=== PATIENT | female | born 1985 | race Two or more races ===

== ENCOUNTER 2020-07-29 08:47 | Emergency (ER) | payer OTHER ==
[~2020-07-29] VITALS: Ht 68.6 cm; Wt 99.8 kg
[2020-07-29] MEDS ORDERED: TRADJENTA5 MG PO (09:21)
[2020-07-29] MEDS ORDERED: CARDURA1 MG PO (09:21)
[2020-07-29] MEDS ORDERED: HYDROCHLOROTH12.5 MG PO (09:22)
[2020-07-29] MEDS ORDERED: COZAAR100 MG PO (09:22)
[2020-07-29] MEDS ORDERED: FORTAMET1000 MG PO (09:22)
== END 2020-07-29 13:02 | disposition home or self-care (01) ==
LOC: ER 08:47
DX: B34.9 Viral infection, unspecified (principal); N91.0 Primary amenorrhea; Z33.1 Pregnant state, incidental; Z03.818 Encounter for observation for suspected exposure to other biological agents ruled out

== ENCOUNTER 2020-08-02 13:22 | Emergency (ER) | payer OTHER ==
[~2020-08-02] VITALS: Ht 160 cm; Wt 99.8 kg
[~2020-08-02 13:22] MED LIST: CARDURA1 MG PO; COZAAR100 MG PO; FORTAMET1000 MG PO; HYDROCHLOROTH12.5 MG PO; TRADJENTA5 MG PO
[2020-08-02] MEDS ORDERED: ACETAMINOPHEN650 M2 PO (19:03)
== END 2020-08-02 19:33 | disposition home or self-care (01) ==
LOC: ER 13:22
DX: O20.0 Threatened abortion (principal)

== ENCOUNTER → 2020-08-27 | Outpatient (CLI) | payer OTHER ==
[~2020-08-27] MED LIST changes: +ACETAMINOPHEN650 M2 PO
== END | disposition home or self-care (01) ==
LOC: PRENATAL 09:13
PROVIDERS: ATTEND Obstetrics & Gynecology Maternal & Fetal Medicine
DX: O10.011 Pre-existing essential hypertension complicating pregnancy, first trimester (principal); O24.311 Unspecified pre-existing diabetes mellitus in pregnancy, first trimester; O36.80X1 Pregnancy with inconclusive fetal viability, fetus 1; Z36.89 Encounter for other specified antenatal screening; Z3A.08 8 weeks gestation of pregnancy

== ENCOUNTER 2020-09-15 04:10 | Inpatient (IN) | payer OTHER ==
[~2020-09-15] VITALS: Ht 160 cm; Wt 103.0 kg
--- NOTE | 2020-09-15 04:25 | NUR ---
SE RECIBE FEMINA ALERTA Y ORIENTADA POR GORAN ESFERAS, EN AMBULANCIA. REFIERE DOLOR PELVICO Y SANGRADO VAGINAL DE CUATRO GAINES DE EVOLUCION. REFIERE TENER 10 SEMANAS DE EMBARAZO. REFIERE QUE APROIMADAMENTE EN DICIEMBRE 2019 LE DIJERON QUE NO TENIA SONIDOS FETALES.
--- NOTE | 2020-09-15 05:21 | NUR ---
SE RECIBE FEMINA ALERTA Y ORIENTADA POR GORAN ESFERAS, EN MANDI CON BARANDAS ELEVADAS Y SEGURAS. SE ORIENTA SOBRE TRATAMIENTO. SE EPIFANIO MUESTRAS DE LABORATORIO ORDENADAS. SE CANALIZA CON AREA DE VENOPUNCION KAVIN DE EDEMA O ENROJECIMIENTO. SE ADMINISTRA MEDICAMENTO ORDENADO. SE MANTIENME EN OBSERVACION POR CAMBIOS.
--- NOTE | 2020-09-15 07:31 | NUR ---
PACIENTE ALERTA Y ORIENTADA EN ANN GORAN ESFERAS, PRESENTA BUEN PATRON RESPIRATORIO Y KAVIN DE DOLOR. CANALIZADA EN BRAZO LT PATENTE Y KAVIN DE S/S DE FLEBITIS E INFILTRACION, RECIBIENDO 0.9% NSS A 120 ML/HR. PENDIENTE RESULTADOS DE LABORATORIOS PARA RE EVALUACION MEDICA.
== END 2020-09-18 17:01 | DRG 779 ==
LOC: ER 04:10 → OB/GYN 10:09
PROVIDERS: ADMIT Obstetrics & Gynecology; ATTEND Obstetrics & Gynecology
PROC: BY49ZZZ Ultrasonography of First Trimester, Single Fetus (ICD-10-PCS; principal; 2020-09-15)
DX: O03.9 Complete or unspecified spontaneous abortion without complication (principal); O03.5 Genital tract and pelvic infection following complete or unspecified spontaneous abortion; Z20.822 Contact with and (suspected) exposure to COVID-19; D25.1 Intramural leiomyoma of uterus

== ENCOUNTER 2020-09-27 21:32 | Emergency (ER) | payer OTHER ==
[~2020-09-27] VITALS: Ht 160 cm; Wt 100.7 kg
[2020-09-28] MEDS ORDERED: IBU400 MG PO (03:52)
[2020-09-28] MEDS ORDERED: KEFLEX500 MG PO (03:52)
== END 2020-09-28 04:08 | disposition home or self-care (01) ==
LOC: ER 21:32
DX: R10.2 Pelvic and perineal pain (principal); R11.0 Nausea